=== PATIENT | female | born 1940 | race Caucasian/White ===

== ENCOUNTER → 2016-09-01 | Outpatient (CLI) | payer MEDICARE ==
[2016-09-01 10:12] LABS: BASOPHILS % (AUTO) 1 % (0-2); EOSINOPHILS # (AUTO) 0.1 10^3uL; EOSINOPHILS % (AUTO) 2 % (0-4); LYMPHOCYTES # (AUTO) 1.7 X10^3; MEAN CORPUSCULAR HGB CONC 34.1 g/dL (31.0-37.0); MEAN CORPUSCULAR VOLUME 88 FL (80-100); MEAN PLATELET VOLUME 10.6 FL (6.0-9.5); MONOCYTES # (AUTO) 0.5 X10^3; MONOCYTES % (AUTO) 8 % (3-11); NEUTROPHILS # (AUTO) 4.1 X10^3; NEUTROPHILS % (AUTO) 63 % (51-67); PLATELET COUNT 173 10^3uL (150-450)
[2016-09-01 10:23] LABS: BILIRUBIN,URINE Negative (Negative); CLARITY,URINE Clear; GLUCOSE, URINE (UA) Negative (Negative); LEUKOCYTE ESTERASE ,URINE Negative (Negative); UROBILINOGEN,URINE 0.2 mg/dL (0.2-1.0)
[2016-09-01 10:34] LABS: ALBUMIN 4.9 g/dL (3.4-5.0); ANION GAP 15.9 MEQ/L (3-15); TOTAL PROTEIN 8.2 g/dL (6.4-8.5)
[2016-09-01 11:10] LABS: COLOR,URINE Light Yellow
[2016-09-01 11:58] LABS: RBC,URINE 0-2 /HPF; URINE CENTRIFUGED VOLUME 12 mL
--- NOTE | 2016-09-01 12:07 | Diagnostic Imaging Report ---
INDICATION: Pleurisy. PA and lateral chest. FINDINGS: Heart size and pulmonary vascularity are normal. Lungs are clear. There are no effusions or pneumothoraces. IMPRESSION: Negative chest. Dictated by: Dictated on workstation # [id number]
--- NOTE | 2016-09-01 12:10 | Diagnostic Imaging Report ---
INDICATION: Upper back pain. Thoracic spine. FINDINGS: AP and lateral views of the thoracic spine show normal vertebral body height and alignment. Disc spaces are well maintained. There is very slight scoliotic curvature of the thoracic spine convex to the right. IMPRESSION: Minimal scoliosis. Thoracic spine is otherwise unremarkable. Dictated by: Dictated on workstation # [id number]
== END ==
LOC: RT 09:21
PROVIDERS: ATTEND Family Medicine
DX: I49.8 Other specified cardiac arrhythmias (principal); M12.80 Other specific arthropathies, not elsewhere classified, unspecified site; R09.1 Pleurisy; R79.89 Other specified abnormal findings of blood chemistry; E78.2 Mixed hyperlipidemia; D50.8 Other iron deficiency anemias; N39.0 Urinary tract infection, site not specified; E13.65 Other specified diabetes mellitus with hyperglycemia; E03.4 Atrophy of thyroid (acquired); M81.0 Age-related osteoporosis without current pathological fracture
CPT/HCPCS: 36415; 71020; 72072; 80053; 80061; 81003; 81015; 82306; 83036; 84436; 84443; 85025; 93005

== ENCOUNTER → 2016-09-29 | Outpatient (CLI) | payer MEDICARE | LOC: LAB 16:09 | PROVIDERS: ATTEND Family Medicine | DX: E03.4 Atrophy of thyroid (acquired) (principal) | CPT/HCPCS: 36415; 84436; 84443 ==